=== PATIENT | female | born 1950 | race Caucasian/White ===

== ENCOUNTER 2023-01-13 08:30 | Day surgery (SDC) | payer OTHER ==
--- NOTE | 2023-01-12 10:00 | RAD REPORT ---
EXAM DESCRIPTION: Joseline Valenzuela And Ellie (2 Views)01/12/2023 9:44 am CLINICAL HISTORY: Preop for cardiac catheterization. Hypertension COMPARISON: None FINDINGS: The lungs appear clear of acute infiltrate. The heart is normal size IMPRESSION: No acute abnormalities displayed
[2023-01-12 10:04] LABS: Absolute Lymphocytes (CBC) 0.8 K/uL (0.7-4.9); Hematocrit 35.6 % (36.0-45.0); Lymphocytes % 12.2 % (15.3-44.8); MPV 8.6 fL (7.6-11.3); RBC Red Blood Cell Count 4.34 M/uL (3.86-4.86)
[2023-01-12 10:06] LABS: Protime INR 0.95
[2023-01-12 10:14] LABS: Potassium 4.1 mEq/L (3.5-5.1)
--- NOTE | 2023-01-12 19:15 | EKG ---
Test Date: 2023-01-12 Test Time: 09:28:53 Supervisor Wood Crew: SANDRA MEASUREMENT RESULTS: Intervals: Rate: 72 DC: 172 QRSD: 70 QT: 356 QTc: 389 [place]: P: 56 DC: 172 QRS: 11 T: 34 INTERPRETIVE STATEMENTS: Normal sinus rhythm Low voltage QRS Cannot rule out Anterior infarct, age undetermined Abnormal ECG No previous ECG available for comparison Electronically Signed On 01-12-23 19:15:21 CDT by Roel Holder
[2023-01-13] MEDS ORDERED: VERAPAMIL HCL 10 MG/4 ML VIAL IV ONE (08:56)
[2023-01-13] MEDS ORDERED: FENTANYL CITR 100 MCG/2 ML ONE (08:56)
[2023-01-13] MEDS ORDERED: HEPARIN 5000 UNIT/ML 1 ML VIAL ONE (08:56)
[2023-01-13] MEDS ORDERED: MIDAZOLAM HCL 2 MG/2 ML INJ ONE (08:56)
[2023-01-13] MEDS ORDERED: HEPA 1000U/500MLS 2,000 UNIT/1,000 ML BAG IV ONE (08:56)
[2023-01-13] MEDS ORDERED: LIDOCAINE 1% 20 ML MDV ONE (08:56)
[2023-01-13] MEDS ORDERED: ATROPINE SULF 1 MG/10 ML SYR IV ONE (08:57)
[2023-01-13] MEDS ORDERED: HEPARIN 10,000 UNIT/10 ML VIAL IV ONE (08:57)
[2023-01-13] MEDS ORDERED: ASPIRIN 325 MG TAB ONE (08:58)
[2023-01-13] MEDS ORDERED: CLOPIDOGREL 75 MG TABLET ONE (08:58)
[2023-01-13] MEDS ORDERED: TICAGRELOR 90 MG TABLET PO ONE (08:58)
[2023-01-13] MEDS ORDERED: NITROGLYCERIN 100 MCG/ML SYR (for cath lab use only) IV ONE (08:59)
[2023-01-13] MEDS ORDERED: NA CHLORIDE 0.9% 500 ML ONE (09:07)
[2023-01-13 13:20] VITALS: BP 124/61; O2SAT 99
--- NOTE | 2023-01-13 14:18 | OP ---
Date of Procedure: 01/13/2023 Surgeon: YENIFER JAMIL Procedures Performed: 1.Selective coronary angiogram. 2.Left heart catheterization. Indication: Abnormal stress test. Access: Right radial artery 6-[place] closed with TR band. Complications: None. Bleeding: Less than 20 mL. Anesthesia: Total sedation time was 20 minutes. Description Of Procedure: After risks, benefits, alternatives explained, the patient agreed to proce dure and signed informed consent. The patient was brought into cardiac catheterization laboratory, p repped and draped in the usual sterile fashion. 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 I engaged that artery and views were taken and then removed the cathete r and sheath, placed TR band with good hemostasis. Findings: 1.Left main; large and normal. 2.LAD; normal. Normal diagonal branches. 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 The rest artery is normal. 4.RCA; large dominant with proximal 30% stenosis. Conclusion: Mild nonobstructive coronary artery disease. Plan: Medical management. /CHADDL Voice ID: [id number] Report ID: [id number]
== END 2023-01-13 13:50 | disposition home or self-care (01) ==
LOC: CCL 08:30
PROVIDERS: ATTEND Internal Medicine
DX: I25.10 Atherosclerotic heart disease of native coronary artery without angina pectoris (principal); Q24.5 Malformation of coronary vessels; I10 Essential (primary) hypertension; E78.2 Mixed hyperlipidemia; E11.9 Type 2 diabetes mellitus without complications; Z01.810 Encounter for preprocedural cardiovascular examination; Z79.84 Long term (current) use of oral hypoglycemic drugs; Z79.899 Other long term (current) drug therapy; Z87.891 Personal history of nicotine dependence; Z82.49 Family history of ischemic heart disease and other diseases of the circulatory system
CPT/HCPCS: 93005; 85025; 80048; 36415; 85610; 82947; 85730; 71046; 93458; 76937; C1893; Q9966; J1644; J2001; J2250; J3010; J7040; J0461